=== PATIENT | female | born 1985 | race Caucasian/White ===

== ENCOUNTER 2017-05-20 13:22 | Emergency (ER) | payer MEDICAID ==
--- NOTE | 2017-05-20 14:19 | ED Physician Chart ---
ED Chief Complaint/HPI - Patient Information Date Seen:: 05/20/17 Time Seen:: 14:14 Chief Complaint:: pelvic pain History of Present Illness:: pt w pain in pelvic since sexual intercourse days ago. pt has been on bcp until oct 2016 due to prior hx of ovarian cyst. she had noted sex to always be painful and so is infrequent. noted small vag spotting of blood after painful intercourse but it has now stopped. no vag dc. no fever. no n/v/d. eating ok. no change noted in urine. PMD thinks pt has pcos...is thinking of putting back on bcp. last menses >6mo ago. pt doubts she is . she feels bloated. pain feels like prior ovarian cyst. Allergies:: Allergies Allergy/AdvReac Type Severity Reaction Status Date / Time ibuprofen AdvReac Verified 05/20/17 13:50 Vitals:: Vital Signs - 8 hr 05/20/17 13:51 Temp 97.9 F HR 72 RR 15 BP 136/82 O2 Sat % 98 Historian:: Patient ED Review of Systems - Review of Systems General/Constitutional: No fever, No chills, No weight loss, No weakness, No diaphoresis, No edema, No loss of appetite Skin: No skin lesions, No rash, No bruising Head: No headache, No light-headedness Eyes: No loss of vision, No pain, No diplopia ENT: No earache, No nasal drainage, No sore throat, No tinnitus Neck: No neck pain, No swelling, No thyromegaly, No stiffness, No mass noted Cardio Vascular: No chest pain, No palpitations, No PND, No orthopnea, No edema Pulmonary: No SOB, No cough, No sputum, No wheezing GI: No nausea, No vomiting, No diarrhea, No pain, No melena, No hematochezia, No constipation, No hematemesis G/U: No dysuria, No frequency, No hematuria Syruper: No vaginal discharge, Abnormal vaginal bleeding Musculoskeletal: No bone or joint pain, No back pain, No muscle pain Endocrine: No polyuria, No polydipsia Psychiatric: No prior psych history, No depression, No anxiety, No suicidal ideation Hematopoietic: No bruising, No lymphadenopathy Allergic/Immuno: No urticaria, No angioedema Neurological: No syncope, No focal symptoms, No weakness, No paresthesia, No headache, No seizure, No dizziness, No confusion, No vertigo ED Past Medical History - Past Medical History Past Medical History: Other (ov cyst 10 yrs ago) Social History: Non Smoker, No Alcohol Medication: Reviewed Family Medical History - Family Member Mother Hx Family Diabetes: Yes ED Physical Exam - Physical Examination General/Constitutional: Awake, Well-developed, well-nourished, Alert, No distress, GCS 15, Non-toxic appearing, Ambulatory Head: Atraumatic Eyes: Lids, conjuctiva normal, PERRL, EOMI Skin: Nl inspection, No rash, No skin lesions, No ecchymosis, Well hydrated, No lymphadenopathy ENMT: External ears, nose nl, Nasal exam nl, Lips, teeth, gums nl Neck: Nontender, Full ROM w/o pain, No JVD, No nuchal rigidity, No bruit, No mass, No stridor Respiratory: Nl effort/Exclusion, Clear to Auscultation, No Wheeze/Rhonchi/Rales Cardio Vascular: RRR, No murmur, gallop, rubs, NL S1 S2 GI: No tenderness/rebounding/guarding, No organomegaly, No hernia, Normal BS's, Nondistended, No mass/bruits, No McBurney tenderness Other GI comments:: vague tndr over low mid abd/pelvis. no rebound. pos nabs. wn/wh. easily mobile without using handholds can sit up w no overt discomfort. : No CVA tenderness Extremities: No tenderness or effusion, Full ROM, normal strength in all extremities, No edema, Normal digits & nails Neuro/Psych: Alert/oriented, DTR's symmetric, Normal sensory exam, Normal motor strength, Judgement/insight normal, Mood normal, Normal gait, No focal deficits Misc: normal gait, Normal back, No paraspinal tenderness ED Labs/Radiology/EKG Results - Lab Results Results: Laboratory Tests 05/20/17 05/20/17 05/20/17 14:29 14:29 15:30 WBC 6.4 RBC 4.59 Hgb 13.0 Hct 38.7 L MCV 84.4 MCH 28.4 MCHC Differential 33.7 RDW 12.2 Plt Count 195 MPV 8.8 Neutrophils % 67.2 Lymphocytes % 19.8 L Monocytes % 7.8 Eosinophils % 4.4 Basophils % 0.8 Sodium 138 Potassium 3.8 Chloride 105 Carbon Dioxide 28.8 Anion Gap 8.0 BUN 13 Creatinine 0.6 Est GFR ( Amer) > 60.0 Est GFR (Non-Af Amer) > 60.0 BUN/Creatinine Ratio 21.7 Glucose 85 Calcium 9.8 Total Bilirubin 0.3 AST 15 ALT 21 Alkaline Phosphatase 59 Total Protein 7.7 Albumin 4.5 Globulin 3.2 Albumin/Globulin Ratio 1.4 Urine Source CLEAN C Urine Color YELLOW Urine Clarity CLEAR Urine pH 6.0 Ur Specific [place] 1.010 Urine Protein NEGATIVE Urine Glucose (UA) NEGATIVE Urine Ketones NEGATIVE Urine Blood TRACE Urine Nitrate NEGATIVE Urine Bilirubin NEGATIVE Urine Urobilinogen 0.2 Ur Leukocyte Esterase TRACE H Urine RBC 0-2 Urine WBC 0-2 Ur Epithelial Cells NONE SEEN Urine Bacteria NONE SEEN Urine Test 05/20/17 15:30 WBC RBC Hgb Hct MCV MCH MCHC Differential RDW Plt Count MPV Neutrophils % Lymphocytes % Monocytes % Eosinophils % Basophils % Sodium Potassium Chloride Carbon Dioxide Anion Gap BUN Creatinine Est GFR ( Amer) Est GFR (Non-Af Amer) BUN/Creatinine Ratio Glucose Calcium Total Bilirubin AST ALT Alkaline Phosphatase Total Protein Albumin Globulin Albumin/Globulin Ratio Urine Source Urine Color Urine Clarity Urine pH Ur Specific [place] Urine Protein Urine Glucose (UA) Urine Ketones Urine Blood Urine Nitrate Urine Bilirubin Urine Urobilinogen Ur Leukocyte Esterase Urine RBC Urine WBC Ur Epithelial Cells Urine Bacteria Urine Test NEGATIVE - Radiology Results Results: us pelvis- bilat ov cysts multiple 1cm sz or less. pt was tndr on l ovary per tech. no vag dc seen on vag exam per tech. no torsion ED Septic Shock - . Is Septic Shock (SBP<90, OR Lactate>4 mmol\L) present?: No - <6hrs of presentation: Vital Signs: Vital Signs - 8 hr 05/20/17 13:51 Temp 97.9 F HR 72 RR 15 BP 136/82 O2 Sat % 98 ED Reassessment (Disposition) - Reassessment Reassessment:: pt says she cant take nsaids due to having had some finding on a head ct years ago. hx is vague and I am advising pt talk to pmd about what pain med is appropriate (pt says she avoids pain meds in general..was offered rx in ed today )..advise she use tylenol for pain until sees pmd. may return if worse pain ... Reassessment Condition:: Improved - Diagnosis Diagnosis:: 1 ovarian cysts - Aftercare/Follow up Instructions Aftercare/Follow-Up Instructions:: Counseled pt regarding lab results/diagnosis & need follow up - Patient Disposition Discharge/Transfer:: Home Condition at Disposition:: Improved ED Discharge Plan - Patient Disposition Instructions: Ovarian Cyst, [id number]
[2017-05-20 14:36] LABS: % BASOPHILS 0.8 % (0.0-2.0); % EOSINOPHILS 4.4 % (0.0-5.0); % LYMPHOCYTES 19.8 % (20.0-50.0); % MONOCYTES 7.8 % (2.0-10.0); % NEUTROPHILS 67.2 % (40.0-80.0); HEMATOCRIT 38.7 % (41.0-60); MEAN CELL VOLUME 84.4 fl (81-100); MEAN CORPUSCULAR HEMOGLOBIN 28.4 pg (27.0-31.0); MEAN CORPUSCULAR HGB CONC 33.7 pg (28.0-36.0); MEAN PLATELET VOLUME 8.8 fl; NEUTROPHILE ABSOLUTE 4.2 Th/cmm (1.8-8.0); PLATELET COUNT 195 Th/cmm (150-400); RED BLOOD COUNT 4.59 Mil/cmm (3.80-5.10); RED CELL DISTRIBUTION WIDTH 12.2 % (11.5-20.0); WHITE BLOOD COUNT 6.4 Th/cmm (4.8-10.8)
[2017-05-20 15:03] LABS: ALB/GLOB RATIO 1.4 (1.0-1.8); ALKALINE PHOSPHATASE 59 U/L (34-104); BILIRUBIN,TOTAL 0.3 mg/dL (0.3-1.0); BUN - UREA NITROGEN 13 mg/dL (7-25); BUN/CREATININE RATIO 21.7; CALCIUM SERUM 9.8 mg/dL (8.6-10.3); CARBON DIOXIDE 28.8 mEq/L (21.0-31.0); CHLORIDE 105 mEq/L (98-107); CREATININE - SERUM 0.6 mg/dL (0.6-1.2); GLUCOSE 85 mg/dL (70-105); POTASSIUM SERUM 3.8 mEq/L (3.5-5.1); SGOT 15 U/L (13-39); SGPT/ALT 21 U/L (7-52); SODIUM SERUM 138 mEq/L (136-145)
[2017-05-20 15:45] LABS: URINE BILIRUBIN NEGATIVE (NEGATIVE); URINE BLOOD TRACE (NEGATIVE); URINE GLUCOSE (UA) NEGATIVE (NEGATIVE); URINE KETONE NEGATIVE (NEGATIVE); URINE PROTEIN NEGATIVE (NEGATIVE); URINE UROBILINOGEN 0.2 E.U./dL (0.2 - 1.0)
[2017-05-20 15:55] LABS: URINE COLOR YELLOW; URINE RBC 0-2 /hpf (0-5)
[2017-05-20 15:56] LABS: URINE BACTERIA NONE SEEN /hpf (NONE SEEN); URINE EPITHELIAL CELLS NONE SEEN /lpf (FEW); URINE WBC 0-2 /hpf (0-5)
--- NOTE | 2017-05-20 16:22 | Diagnostic Imaging Report ---
Ultrasound pelvis HISTORY: Pelvic pain history of ovarian cysts. Vaginal spotting. LMP 10/16/2016. Beta hCG negative COMPARISON: None Technique: Longitudinal and transverse sonographic sector images of the pelvis were obtained transabdominally and transvaginally. FINDINGS: The uterus measures 6.8 x 2.7 x 2.8 cm. Endometrium measures 3 mm. The right ovary measures 2.6 x 2.6 cm. The left ovary measures 2.8 x 2.6 cm. Bilateral ovarian follicular cystic changes are noted. Vascular flow to ovaries is noted. No evidence of free fluid. IMPRESSION: Bilateral ovarian follicular cystic changes, likely physiologic Vascular flow to both testicles noted. No evidence of free fluid. The Endometrium measures 3 mm please correlate with menstrual cycle.
== END 2017-05-20 16:25 ==
LOC: ER 13:22
DX: N83.202 Unspecified ovarian cyst, left side (principal); Z88.6 Allergy status to analgesic agent
CPT/HCPCS: 36415-UA; 76856-TC; 80053-TC; 81001-TC; 81025-TC; 85025-TC; Z7610

== ENCOUNTER 2017-10-22 06:15 | Emergency (ER) | payer MEDICAID ==
--- NOTE | 2017-10-22 07:19 | ED Physician Chart ---
ED Chief Complaint/HPI - Patient Information Date Seen:: 10/22/17 Time Seen:: 07:05 Chief Complaint:: abdominal pain History of Present Illness:: Patient's had right upper quadrant pain for last 2 week. She thinks she feels a RUQ subcutaneous mass. Patient's had left lateral thigh pain for 2 months. No trauma. No chills, fever, vomiting, diarrhea, dysuria. Allergies:: Allergies Allergy/AdvReac Type Severity Reaction Status Date / Time ibuprofen AdvReac Verified 10/22/17 06:33 Vitals:: Vital Signs - 8 hr 10/22/17 06:20 Temp 98.1 F HR 82 RR 18 BP 141/87 O2 Sat % 98 Historian:: Patient Review:: Nurse's Note Reviewed ED Review of Systems - Review of Systems General/Constitutional: No fever, No chills Skin: No skin lesions Head: No headache Eyes: No loss of vision ENT: No earache Neck: No neck pain, No swelling Cardio Vascular: No chest pain, No palpitations Pulmonary: No SOB, No cough, No sputum GI: No nausea, No vomiting, No diarrhea, Pain G/U: No dysuria Musculoskeletal: Muscle pain Endocrine: No polyuria, No polydipsia Psychiatric: No prior psych history, No depression Hematopoietic: No bruising, No lymphadenopathy Allergic/Immuno: No urticaria Neurological: No syncope, No focal symptoms, No weakness ED Past Medical History - Past Medical History Past Medical History: No significant medical hx Family History: Diabetes Melitus, HTN Social History: Non Smoker, No Alcohol Surgical History: None Psychiatricy History: None Medication: None Family Medical History - Family Member Mother History Unknown: Yes Hx Family Diabetes: Yes ED Physical Exam - Physical Examination General/Constitutional: Well-developed, well-nourished, No distress Head: Atraumatic Eyes: Lids, conjuctiva normal, PERRL Skin: Nl inspection, No rash ENMT: External ears, nose nl Neck: No nuchal rigidity Respiratory: Nl effort/Exclusion, Clear to Auscultation Cardio Vascular: RRR, No murmur, gallop, rubs, NL S1 S2 GI: No organomegaly, No hernia, Normal BS's, Nondistended Other GI comments:: Right upper quadrant tenderness : No CVA tenderness Extremities: Normal digits & nails Other Extremities comments:: When out of 4 tenderness lateral distal left thigh; possible about 1 cm ill- defined mass at site of tenderness. Neuro/Psych: No focal deficits Misc: No paraspinal tenderness ED Labs/Radiology/EKG Results - Lab Results Results: Laboratory Results - last 24 hr 10/22/17 10/22/17 10/22/17 07:20 07:20 07:20 WBC 9.6 D RBC 4.64 Hgb 13.1 Hct 38.2 L MCV 82.4 MCH 28.3 MCHC Differential 34.4 RDW 12.5 Plt Count 216 MPV 8.4 Neutrophils % 61.7 Lymphocytes % 24.0 Monocytes % 8.5 Eosinophils % 5.2 H Basophils % 0.6 Sodium 136 Potassium 4.0 Chloride 104 Carbon Dioxide 29.0 Anion Gap 7.0 BUN 11 Creatinine 0.5 L Est GFR ( Amer) > 60.0 Est GFR (Non-Af Amer) > 60.0 BUN/Creatinine Ratio 22.0 Glucose 100 Calcium 9.7 Lipase 17 Urine Source [place] Urine Color YELLOW Urine Clarity CLEAR Urine pH 6.0 Ur Specific [place] 1.020 Urine Protein NEGATIVE Urine Glucose (UA) NEGATIVE Urine Ketones NEGATIVE Urine Blood TRACE Urine Nitrate NEGATIVE Urine Bilirubin NEGATIVE Urine Urobilinogen 0.2 Ur Leukocyte Esterase NEGATIVE Urine RBC 2-5 Urine WBC 0-2 Ur Epithelial Cells MODERATE Urine Bacteria OCCASIONAL Urine Mucus FEW Urine Test 10/22/17 07:20 WBC RBC Hgb Hct MCV MCH MCHC Differential RDW Plt Count MPV Neutrophils % Lymphocytes % Monocytes % Eosinophils % Basophils % Sodium Potassium Chloride Carbon Dioxide Anion Gap BUN Creatinine Est GFR ( Amer) Est GFR (Non-Af Amer) BUN/Creatinine Ratio Glucose Calcium Lipase Urine Source Urine Color Urine Clarity Urine pH Ur Specific [place] Urine Protein Urine Glucose (UA) Urine Ketones Urine Blood Urine Nitrate Urine Bilirubin Urine Urobilinogen Ur Leukocyte Esterase Urine RBC Urine WBC Ur Epithelial Cells Urine Bacteria Urine Mucus Urine Test NEGATIVE - Radiology Results Results: X-ray left femur negative; gallbladder ultrasound negative for gallstones ED Assessment - Assessment General Assessment: Patient may require further workup with an MRI or CAT scan for soft tissue lesions ED Septic Shock - . Is Septic Shock (SBP<90, OR Lactate>4 mmol\L) present?: No - <6hrs of presentation: Vital Signs: Vital Signs - 8 hr 10/22/17 06:20 Temp 98.1 F HR 82 RR 18 BP 141/87 O2 Sat % 98 ED Reassessment (Disposition) - Reassessment Reassessment Condition:: Unchanged - Diagnosis Diagnosis:: Abdominal pain etiology to be determined; left thigh pain etiology uncertain - Aftercare/Follow up Instructions Aftercare/Follow-Up Instructions:: Refer to Discharge Instructions - Patient Disposition Discharge/Transfer:: Home Condition at Disposition:: Stable, Unchanged
[2017-10-22 07:29] LABS: URINE MICROSCOPIC INDICATED? YES; URINE SOURCE MIDSTREAM
[2017-10-22 07:31] LABS: % BASOPHILS 0.6 % (0.0-2.0); % EOSINOPHILS 5.2 % (0.0-5.0); % MONOCYTES 8.5 % (2.0-10.0); % NEUTROPHILS 61.7 % (40.0-80.0); BASOPHILE ABSOLUTE 0.1 Th/cumm (0-0.2); EOSINOPHILE ABSOLUTE 0.5 Th/cmm (0.1-0.4); HEMATOCRIT 38.2 % (41.0-60); HEMOGLOBIN 13.1 gm/dL (12-16); LYMPHOCYTE ABSOLUTE 2.3 Th/cmm (1.5-3.0); MEAN CELL VOLUME 82.4 fl (81-100); MEAN CORPUSCULAR HEMOGLOBIN 28.3 pg (27.0-31.0); MEAN CORPUSCULAR HGB CONC 34.4 pg (28.0-36.0); MEAN PLATELET VOLUME 8.4 fl; MONOCYTE ABSOLUTE 0.8 Th/cmm (0.3-1.0); NEUTROPHILE ABSOLUTE 5.9 Th/cmm (1.8-8.0); PLATELET COUNT 216 Th/cmm (150-400); RED BLOOD COUNT 4.64 Mil/cmm (3.80-5.10); RED CELL DISTRIBUTION WIDTH 12.5 % (11.5-20.0)
[2017-10-22 07:32] LABS: WHITE BLOOD COUNT 9.6 Th/cmm (4.8-10.8)
[2017-10-22 07:35] LABS: URINE BILIRUBIN NEGATIVE (NEGATIVE); URINE BLOOD TRACE (NEGATIVE); URINE GLUCOSE (UA) NEGATIVE (NEGATIVE); URINE KETONE NEGATIVE (NEGATIVE); URINE LEUKOCYTE ESTERASE NEGATIVE (NEGATIVE); URINE NITRATE NEGATIVE (NEGATIVE); URINE PROTEIN NEGATIVE (NEGATIVE); URINE UROBILINOGEN 0.2 E.U./dL (0.2 - 1.0)
[2017-10-22 07:36] LABS: URINE CLARITY CLEAR (CLEAR); URINE COLOR YELLOW
[2017-10-22 07:39] LABS: URINE BACTERIA OCCASIONAL /hpf (NONE SEEN); URINE EPITHELIAL CELLS MODERATE /lpf (FEW); URINE WBC 0-2 /hpf (0-5)
[2017-10-22 07:46] LABS: BUN - UREA NITROGEN 11 mg/dL (7-25); CALCIUM SERUM 9.7 mg/dL (8.6-10.3); CHLORIDE 104 mEq/L (98-107); CREATININE - SERUM 0.5 mg/dL (0.6-1.2); GFR AFRICAN-AMERICAN > 60.0 ml/min (>90); GFR NON AFRICAN-AMERICAN > 60.0 ml/min; GLUCOSE 100 mg/dL (70-105); LIPASE 17 U/L (11-82); SODIUM SERUM 136 mEq/L (136-145)
--- NOTE | 2017-10-22 08:37 | Diagnostic Imaging Report ---
Left femur (2 views) HISTORY: Pain No acute bony abnormalities. No fractures. IMPRESSION: No acute abnormalities
--- NOTE | 2017-10-22 09:37 | Diagnostic Imaging Report ---
Gallbladder ultrasound HISTORY: Pain Exam is limited to the gallbladder region. The gallbladder appears normal. No intraluminal abnormalities. No evidence of calculi. No abnormal pericholecystic fluid. The common bile duct measures 2 mm in diameter. IMPRESSION: 1. Negative examination of the gallbladder
== END 2017-10-22 09:15 | disposition home or self-care (01) ==
LOC: ER 06:15
DX: R10.11 Right upper quadrant pain (principal); M79.652 Pain in left thigh
CPT/HCPCS: 36415-UA; 76705-TC; 80048-TC; 81001-TC; 81025-TC; 83690-TC; 85025-TC